=== PATIENT | female | born 1995 | race Caucasian/White ===

== ENCOUNTER 2018-09-06 02:08 | Inpatient (IN) | payer BC ==
[~2018-09-06] VITALS: Ht 154.9 cm; Wt 88.6 kg
[2018-09-11 12:37] VITALS: BP 161/103
== END 2018-09-11 18:05 | disposition home or self-care (01) | DRG 788 ==
LOC: LDOP 02:08 → LDIP 02:20 → 2NE 09:27 → 2NW 09-07 05:37
PROVIDERS: ADMIT Obstetrics & Gynecology; ATTEND Obstetrics & Gynecology
PROC: 10D00Z1 Extraction of Products of Conception, Low, Open Approach (ICD-10-PCS; principal; 2018-09-06)
DX: O42.92 Full-term premature rupture of membranes, unspecified as to length of time between rupture and onset of labor (principal); O48.0 Post-term pregnancy; O62.0 Primary inadequate contractions; O77.0 Labor and delivery complicated by meconium in amniotic fluid; O99.214 Obesity complicating childbirth; E66.01 Morbid (severe) obesity due to excess calories; Z37.0 Single live birth; Z3A.41 41 weeks gestation of pregnancy
CPT/HCPCS: 36415; J3490; 80053; 81001; 82570; 82803; 84156; 84550; 85025; 86850; 86900; 87040; 87086; G0378; J0690; J1885; J2274; J2405; J2704; J3010; J1580; J2370; J2590; J2765; J7120

== ENCOUNTER 2018-09-18 14:13 | Emergency (ER) | payer BC ==
[~2018-09-18] VITALS: Ht 154.9 cm; Wt 80.8 kg
[2018-09-18 14:18] VITALS: BP 130/87
--- NOTE | 2018-09-18 15:03 | NUR ---
DR. DELEON TO BS FRO ASSESSMENT. AWAIING ORDERS.
--- NOTE | 2018-09-18 15:03 | NUR ---
PT TO ROOM FROM LOBBY IN NAD
[2018-09-18] MEDS ORDERED: LABETALOL (15:08)
== END 2018-09-18 15:35 | disposition home or self-care (01) ==
LOC: ED 15:20
DX: O90.89 Other complications of the puerperium, not elsewhere classified (principal); R10.9 Unspecified abdominal pain
CPT/HCPCS: 99282; 99283